=== PATIENT | female | born 1985 | race Caucasian/White ===

== ENCOUNTER 2023-05-12 23:19 | Inpatient (IN) ==
[2023-05-12] MEDS ORDERED: SODIUM CHLORIDE 0.9% 500 ML IV STA (23:49)
[2023-05-13 00:18] LABS: Appearance Urine Cloudy (Clear); Bacteria Urine Automated 1+ (Negative); Bilirubin Urine Negative (Negative); Blood Urine Negative (Negative); Color Urine Yellow; Epithelial Cell Urine Auto >30 /lpf (0-5); Glucose Urine UA Negative (Negative); Ketones Urine Trace (Negative); Leukocyte Esterase Urine 1+ (Negative); Nitrite Urine Negative (Negative); Pregnancy Test, Urine Negative (Negative); Protein Urine Negative (Negative); RBC Urine Automated 0-4 /hpf (0-4); Specific Gravity Urine 1.007 (1.000-1.030); Urobilinogen Urine Negative (Negative); WBC Urine Automated >30 /hpf (0-5); pH Urine 6.5 (4.5-7.5)
[2023-05-13 00:23] LABS: Basophils # (auto) 0.04 K/uL (0-0.2); Basophils % (auto) 0.3 %; Eosinophils # (auto) 0.07 K/uL (0-0.50); Eosinophils % (auto) 0.5 %; Hematocrit (blood only) 39.3 % (37.0-47.0); Hemoglobin 13.7 g/dl (12.0-16.0); Immature Granulocytes # (auto) 0.06 K/uL (0.01-0.20); Immature Granulocytes % (auto) 0.4 %; Lymphocytes # (auto) 2.62 K/uL (1.2-3.4); Lymphocytes % (auto) 18.7 %; Mean Corpuscular Hemoglobin 29.5 pg (25.0-34.0); Mean Corpuscular Hgb Conc 34.9 g/dL (32.0-36.0); Mean Corpuscular Volume 84.7 fL (80.0-100.0); Mean Platelet Volume 10.3 fL (9.4-12.4); Monocytes # (auto) 1.19 K/uL (0.11-0.59); Monocytes % (auto) 8.5 %; Neutrophils # (auto) 10.02 K/uL (1.40-6.50); Neutrophils % (auto) 71.6 %; Platelet Count 235 K/uL (130-400); RDW Coefficient of Variation 12.2 % (11.5-14.5); RDW Standard Deviation 37.4 fL (36.4-46.3); Red Blood Count 4.64 M/uL (4.20-5.40)
[2023-05-13] MEDS ORDERED: ONDANSETRON INJ 2 MG/ML 2 ML VIAL IV STA (00:23)
[2023-05-13] MEDS ORDERED: SODIUM CHLORIDE 0.9% 1000ML 1,000 ML IV ONE (00:23)
[2023-05-13 00:34] LABS: Albumin Globulin Ratio 1.6 (0.9-2); Albumin Level 4.3 gm/dl (3.4-5.0); BUN Creatinine Ratio 17.2 (10-20); Bilirubin,Total 0.7 mg/dl (0.2-1.0); Calcium 9.7 mg/dl (8.6-10.3); Creatinine Clr Calc Pharmacy 99.5 ml/min; Est GFR (African American) 97.9 ml/min; Est GFR (Non-African American) 84.5 ml/min; Globulin 2.7 gm/dl (2.5-4.0); Potassium 3.8 mmol/L (3.5-5.1)
--- NOTE | 2023-05-13 00:35 | Emergency Department Note ---
History of Present Illness General Chief complaint: Flank Pain Stated complaint: SEVERE BACK PAIN,RT FLANK PAIN,FEVER Time Seen by Provider: 05/13/23 00:13 Source: patient, RN notes reviewed and old records reviewed (I have reviewed I have reviewed the CAT scan and labs from [facility]) Mode of arrival: ambulatory Limitations: no limitations History of Present Illness Maximum Pain Intensity: 8 This patient is a 37-year-old female who comes in after having pain in her right flank since Thursday she has no dysuria hematuria she had a low-grade temperature up to 100 degrees. She was seen at [facility] yesterday had a CAT scan which showed mild hydro but no stone her white count was elevated 14 she follow-up with her doctor today without was related to her back she says it is constant pain but it does hurt worse when she moves her leg or moves at all. She has a history of UTIs but had no urinary symptoms. She has had no cough or shortness of breath or pleurisy no trauma or injury. The pain does also radiate around into her abdomen. No history of kidney stones or back problems Home Medications Medication Instructions Recorded Confirmed Type No Known Home Medications 05/13/23 05/13/23 History Allergies Allergy/AdvReac Type Severity Reaction Status Date / Time codeine Allergy Hives Verified 05/12/23 23:49 Past Med/Surg History Social History Smoking Status: Never smoker Preferred Language: Uzbek Feels Safe at Home: Yes Immunizations: Past medical historyno history of kidney stones or back infections no abdominal surgery Social history. she recently moved back to the area. her is in the [facility] and will be driving her home Review of Systems A total of 10 systems reviewed and were otherwise negative Physical Exam Vital Signs Vital Signs - 24 hr 05/12/23 23:20 05/12/23 23:46 05/12/23 23:50 Temperature 36.8 C Temperature Source Temporal Artery Scan Pulse Rate 131 H 118 H Pulse Rate [Apical] Pulse Rate [Finger] 127 H Pulse Rate from SpO2 Sensor Pulse Rhythm [Finger] Regular Pulse Strength [Finger] Normal Respiratory Rate 16 25 H Respiratory Effort / Characteristics Non-Labored Spontaneous Non-Labored Spontaneous Respiratory Depth Normal Normal Respiratory Pattern Regular Blood Pressure 152/99 H Blood Pressure [Left Arm] 154/97 H Blood Pressure Mean 116 Blood Pressure Mean [Left Arm] 116 Pulse Oximetry 97 95 Oxygen Delivery Method Room Air Room Air Sepsis Recent Fever Within 48 Hours No Sepsis New/Unexplained Change in Mental Status No Sepsis Action Taken by Nursing No Action Required 05/12/23 23:46 05/12/23 23:46 05/13/23 00:00 Temperature Temperature Source Pulse Rate 125 H Pulse Rate [Apical] Pulse Rate [Finger] Pulse Rate from SpO2 Sensor 124 H Pulse Rhythm [Finger] Pulse Strength [Finger] Respiratory Rate 23 Respiratory Effort / Characteristics Respiratory Depth Respiratory Pattern Blood Pressure 154/97 H 135/95 Blood Pressure [Left Arm] Blood Pressure Mean 116 108 Blood Pressure Mean [Left Arm] Pulse Oximetry 96 Oxygen Delivery Method Sepsis Recent Fever Within 48 Hours Sepsis New/Unexplained Change in Mental Status Sepsis Action Taken by Nursing 05/13/23 00:00 05/13/23 00:44 05/13/23 01:00 Temperature Temperature Source Pulse Rate 120 H 114 H Pulse Rate [Apical] Pulse Rate [Finger] Pulse Rate from SpO2 Sensor 121 H Pulse Rhythm [Finger] Pulse Strength [Finger] Respiratory Rate 26 H Respiratory Effort / Characteristics Respiratory Depth Respiratory Pattern Blood Pressure 125/85 Blood Pressure [Left Arm] Blood Pressure Mean 98 Blood Pressure Mean [Left Arm] Pulse Oximetry 96 Oxygen Delivery Method Sepsis Recent Fever Within 48 Hours Sepsis New/Unexplained Change in Mental Status Sepsis Action Taken by Nursing 05/13/23 01:00 05/13/23 01:30 05/13/23 01:30 Temperature Temperature Source Pulse Rate 109 H 110 H Pulse Rate [Apical] Pulse Rate [Finger] Pulse Rate from SpO2 Sensor 109 H Pulse Rhythm [Finger] Pulse Strength [Finger] Respiratory Rate 17 19 Respiratory Effort / Characteristics Respiratory Depth Respiratory Pattern Blood Pressure 120/89 Blood Pressure [Left Arm] Blood Pressure Mean 99 Blood Pressure Mean [Left Arm] Pulse Oximetry 99 Oxygen Delivery Method Sepsis Recent Fever Within 48 Hours Sepsis New/Unexplained Change in Mental Status Sepsis Action Taken by Nursing 05/13/23 03:03 Temperature Temperature Source Pulse Rate Pulse Rate [Apical] 104 H Pulse Rate [Finger] Pulse Rate from SpO2 Sensor Pulse Rhythm [Finger] Pulse Strength [Finger] Respiratory Rate 20 Respiratory Effort / Characteristics Respiratory Depth Respiratory Pattern Blood Pressure Blood Pressure [Left Arm] 129/84 Blood Pressure Mean Blood Pressure Mean [Left Arm] 99 Pulse Oximetry 96 Oxygen Delivery Method Room Air Sepsis Recent Fever Within 48 Hours Sepsis New/Unexplained Change in Mental Status Sepsis Action Taken by Nursing General: Well developed well nourished not ill-appearing young female who appears in no acute distress, breathing comfortably on room air. Normal speech HEENT: Normal cephalic atraumatic. Pupils are equal round and reactive to light. Extraocular movements are intact. Oropharynx is pink with moist mucous membranes. No swelling of the mouth lips or tongue. Neck: Supple with a midline trachea. No meningeal signs or stiffness, no JVD or bruits. No Stridor. Chest: Clear to auscultation bilaterally. No wheezes or rhonchi. No increased work of breathing. Heart: Regular rate and rhythm without murmurs or gallops. Abdomen: Soft nontender, nondistended without rebound guarding or rigidity. Extremities: No cyanosis clubbing or edema. No calf tenderness or assymetry Spine/Back. Non tender to palpation. Just mildly tender in the right flank. No redness or warmth or rash Skin: Good turgor without rashes. Neurologic exam: Cranial nerves two through 12 are intact. Motor and sensation are intact and symmetrical throughout. 2+ to 3+ Achilles and patellar reflexes bilateral Course Administered Medications Discontinued Medications Gadobutrol (Gadobutrol 65ml Vial) 9.5 ml IV ONCE ONE Stop: 05/13/23 02:34 Last Admin: 05/13/23 02:33 Dose: 9.5 ml Documented By: ALEX Sodium Chloride (Nss) 500 mls @ 999 mls/hr IV .Q31M STA Stop: 05/13/23 00:19 Last Infusion: 05/13/23 01:57 Dose: 0 mls/hr Documented By: Admin: 05/13/23 00:00 Dose: 999 mls/hr Documented By: JED Sodium Chloride (Nss 1000ml) 1,000 mls @ 999 mls/hr IV .Q1H1M ONE Stop: 05/13/23 01:23 Last Infusion: 05/13/23 01:57 Dose: 0 mls/hr Documented By: Admin: 05/13/23 00:50 Dose: 999 mls/hr Documented By: JED Ceftriaxone Sodium (Rocephin) 2,000 mg in 70 mls @ 140 mls/hr IV NOW STA Stop: 05/13/23 02:00 Last Infusion: 05/13/23 03:06 Dose: 0 mls/hr Documented By: Admin: 05/13/23 01:57 Dose: 140 mls/hr Documented By: JED Ondansetron HCl (Ondansetron Inj 2 Mg/Ml 2 Ml Vial) 4 mg IV NOW STA Stop: 05/13/23 00:24 Last Admin: 05/13/23 01:12 Dose: Not Given Documented By: JED Medical Decision Making Differential Diagnosis Kidney stone, kidney infection, intra-abdominal process, electrolyte or metabolic abnormality, spinal disease or process, spinal infection, UTI, kidney stone, Medical Records Attestation: I reviewed the patient's medical records. Home Medications Current Medication List: was personally reviewed by me Laboratory Data Attestation: I reviewed the patient's lab results. 05/13/23 00:01 05/13/23 00:01 Lab Results 05/13/23 05/13/23 05/13/23 Range/Units 00:01 00:01 00:01 WBC 14.00 H (4.8-10.8) K/ul RBC 4.64 (4.20-5.40) M/uL Hgb 13.7 (12.0-16.0) g/dl Hct 39.3 (37.0-47.0) % MCV 84.7 (80.0-100.0) fL MCH 29.5 (25.0-34.0) pg MCHC 34.9 (32.0-36.0) g/dL RDW Std Deviation 37.4 (36.4-46.3) fL RDW Coeff of Nelson 12.2 (11.5-14.5) % Plt Count 235 (130-400) K/uL MPV 10.3 (9.4-12.4) fL Immature Gran % (Auto) 0.4 % Neut % (Auto) 71.6 % Lymph % (Auto) 18.7 % [place] % (Auto) 8.5 % Eos % (Auto) 0.5 % Baso % (Auto) 0.3 % Neut # (Auto) 10.02 H (1.40-6.50) K/uL Lymph # (Auto) 2.62 (1.2-3.4) K/uL [place] # (Auto) 1.19 H (0.11-0.59) K/uL Eos # (Auto) 0.07 (0-0.50) K/uL Baso # (Auto) 0.04 (0-0.2) K/uL Immature Gran # (Auto) 0.06 (0.01-0.20) K/uL Sodium 137 (136-145) mmol/L Potassium 3.8 (3.5-5.1) mmol/L Chloride 104 (98-107) mmol/L Carbon Dioxide 24 (21-32) mmol/L Anion Gap 9 (3-11) BUN 15 (6-23) mg/dl Creatinine 0.87 (0.6-1.2) mg/dl Est Cr Clr Drug Dosing 99.5 ml/min Est GFR ( Amer) 97.9 ml/min Est GFR (Non-Af Amer) 84.5 ml/min BUN/Creatinine Ratio 17.2 (10-20) Glucose 110 H (70-99(Fasting)) mg/dl Lactate (0.4-2.0) mmol/L Calcium 9.7 (8.6-10.3) mg/dl Total Bilirubin 0.7 (0.2-1.0) mg/dl AST 10 L (13-39) U/L ALT 11 (7-52) U/L Alkaline Phosphatase 36 (34-104) U/L Total Protein 7.0 (6.0-8.3) gm/dl Albumin 4.3 (3.4-5.0) gm/dl Globulin 2.7 (2.5-4.0) gm/dl Albumin/Globulin Ratio 1.6 (0.9-2) Lipase 20 (11-82) U/L Urine Color Yellow Urine Appearance Cloudy A (Clear) Urine pH 6.5 (4.5-7.5) Ur Specific Franklin 1.007 (1.000-1.030) Urine Protein Negative (Negative) Urine Glucose (UA) Negative (Negative) Urine Ketones Trace H (Negative) Urine Blood Negative (Negative) Urine Nitrite Negative (Negative) Urine Bilirubin Negative (Negative) Urine Urobilinogen Negative (Negative) Ur Leukocyte Esterase 1+ H (Negative) Urine WBC (Auto) >30 H (0-5) /hpf Urine RBC (Auto) 0-4 (0-4) /hpf U Hyaline Cast (Auto) 1-5 (0-5) /lpf U Epithel Cells (Auto) >30 H (0-5) /lpf Urine Bacteria (Auto) 1+ H (Negative) Urine Test (Negative) 05/13/23 05/13/23 Range/Units 00:01 00:54 WBC (4.8-10.8) K/ul RBC (4.20-5.40) M/uL Hgb (12.0-16.0) g/dl Hct (37.0-47.0) % MCV (80.0-100.0) fL MCH (25.0-34.0) pg MCHC (32.0-36.0) g/dL RDW Std Deviation (36.4-46.3) fL RDW Coeff of Nelson (11.5-14.5) % Plt Count (130-400) K/uL MPV (9.4-12.4) fL Immature Gran % (Auto) % Neut % (Auto) % Lymph % (Auto) % [place] % (Auto) % Eos % (Auto) % Baso % (Auto) % Neut # (Auto) (1.40-6.50) K/uL Lymph # (Auto) (1.2-3.4) K/uL [place] # (Auto) (0.11-0.59) K/uL Eos # (Auto) (0-0.50) K/uL Baso # (Auto) (0-0.2) K/uL Immature Gran # (Auto) (0.01-0.20) K/uL Sodium (136-145) mmol/L Potassium (3.5-5.1) mmol/L Chloride (98-107) mmol/L Carbon Dioxide (21-32) mmol/L Anion Gap (3-11) BUN (6-23) mg/dl Creatinine (0.6-1.2) mg/dl Est Cr Clr Drug Dosing ml/min Est GFR ( Amer) ml/min Est GFR (Non-Af Amer) ml/min BUN/Creatinine Ratio (10-20) Glucose (70-99(Fasting)) mg/dl Lactate 0.6 (0.4-2.0) mmol/L Calcium (8.6-10.3) mg/dl Total Bilirubin (0.2-1.0) mg/dl AST (13-39) U/L ALT (7-52) U/L Alkaline Phosphatase (34-104) U/L Total Protein (6.0-8.3) gm/dl Albumin (3.4-5.0) gm/dl Globulin (2.5-4.0) gm/dl Albumin/Globulin Ratio (0.9-2) Lipase (11-82) U/L Urine Color Urine Appearance (Clear) Urine pH (4.5-7.5) Ur Specific Franklin (1.000-1.030) Urine Protein (Negative) Urine Glucose (UA) (Negative) Urine Ketones (Negative) Urine Blood (Negative) Urine Nitrite (Negative) Urine Bilirubin (Negative) Urine Urobilinogen (Negative) Ur Leukocyte Esterase (Negative) Urine WBC (Auto) (0-5) /hpf Urine RBC (Auto) (0-4) /hpf U Hyaline Cast (Auto) (0-5) /lpf U Epithel Cells (Auto) (0-5) /lpf Urine Bacteria (Auto) (Negative) Urine Test Negative (Negative) Imaging Data Attestation: I personally reviewed and interpreted this imaging study as follows: My Impression: CT stone study-no obstructive uropathy or any acute intra-abdominal process seen Radiologist's Impression: Abdomen/Pelvis CT 05/13/23 00:26 Exam(s): CT ABDOMEN + PELVIS Without Contrast EXAM: CT Abdomen and Pelvis Without Intravenous Contrast CLINICAL HISTORY: Reason for exam: right flank pain. TECHNIQUE: Axial computed tomography images of the abdomen and pelvis without intravenous contrast. CTDI is 28.08 mGy and DLP is 1426.95 mGy-cm. Automated exposure control was utilized for the study. A dose lowering technique was utilized adhering to the principles of ALARA. COMPARISON: No relevant prior studies available. FINDINGS: Lung bases: Unremarkable. No mass. No consolidation. ABDOMEN: Liver: The liver is borderline enlarged is 18 cm. No focal liver lesion is seen. Gallbladder and bile ducts: Unremarkable. No calcified stones. No ductal dilation. Pancreas: Unremarkable. No ductal dilation. Spleen: Unremarkable. No splenomegaly. Adrenals: Unremarkable. No mass. Kidneys and ureters: The kidneys are unremarkable. No hydronephrosis or ureterolithiasis is seen. Stomach and bowel: Unremarkable. No obstruction. No mucosal thickening. PELVIS: Appendix: The appendix is normal. Bowel loops are nondilated. No acute inflammatory changes are seen involving the bowel. Bladder: Unremarkable. No stones. Reproductive: Unremarkable as visualized. ABDOMEN and PELVIS: Intraperitoneal space: Unremarkable. No free air. No significant fluid collection. Bones/joints: No acute fracture. No dislocation. Soft tissues: Unremarkable. Vasculature: Unremarkable. No abdominal aortic aneurysm. Lymph nodes: Unremarkable. No enlarged lymph nodes. IMPRESSION: 1. The kidneys are unremarkable. No hydronephrosis or ureterolithiasis is seen. 2. The appendix is normal. Bowel loops are nondilated. No acute inflammatory changes are seen involving the bowel. Electronically signed by: Alex Thakkar MD 05/13/23 01:20 AM Lumbar Spine MRI 05/13/23 01:28 CR Exam(s): MRI L SPINE W/WO Contrast IV Amt: 9.5cc gadavist EXAM: MR Lumbar Spine Without and With Intravenous Contrast CLINICAL HISTORY: Reason for exam: back pain, fever, elevated wbc, eval for infection. TECHNIQUE: Magnetic resonance images of the lumbar spine without and with intravenous contrast in multiple planes. CONTRAST: Patient received 9.5cc gadavist of IV contrast COMPARISON: CT Abd/Pel 05-13-2023 FINDINGS: Vertebrae: There are 5 lumbar type vertebral bodies with shallow lumbar lordosis. There is normal vertebral body height and alignment. The bone marrow signal is normal. No acute fracture. There is mild wedging of the T12 vertebral body, which is likely physiologic. Spinal cord: The conus is normal size, shape and signal characteristics, terminating at T11-12. No abnormal enhancement. Soft tissues: Increased fluid signal in the L2-3, L3-4 and L4-5 interspinous bursa with increased enhancement in the L2-3 interspinous bursa with small rim-enhancing fluid collection adjacent to the right spinous process concerning for abscess, measuring 15.9 x 7.3 mm. DISCS/SPINAL CANAL/NEURAL FORAMINA: L1-L2: Unremarkable. No significant disc disease. No stenosis. L2-L3: Unremarkable. No significant disc disease. No stenosis. L3-L4: Unremarkable. No significant disc disease. No stenosis. L4-L5: Unremarkable. No significant disc disease. No stenosis. L5-S1: Unremarkable. No significant disc disease. No stenosis. IMPRESSION: Findings concerning for infectious interspinous bursitis at L2-3 with small abscess adjacent to the L2 and L3 spinous processes, measuring 15.9 x 7.3 mm. No evidence of osteomyelitis or epidural abscess. Communications: Verify Receipt Electronically signed by: Cheryl Lujan MD 05/13/23 04:57 AM MDM Narrative This patient comes in as described above. She was placed in room A3. She is here for treatment evaluation of back pain. She is also has pain rating down her leg feels numbness and tingling at times. She looks well she is a little bit tachycardic . IV access was established was given 1 L IV normal saline bolus. She had blood work done her white count is elevated 14 her urinalysis is difficult to say because there is greater than 30 epithelial cells. I did review her labs from [facility] and she did have an elevated white count there. Her CAT scan showed mild hydro without any other findings I repeated the CAT scan here there is no obstructive uropathy or anything to suggest her symptoms her urinalysis is suboptimal as she is greater than 30 epithelial cells so it is difficult to rule out a UTI in or out. She is no significant electrolyte or metabolic abnormalities. I did give her Rocephin 2 g IV for possible infection of concern her white count still elevated at 14. She has low-grade temperature , I did do an MRI of her back to rule out any infectious process such as discitis or epidural abscess it seems like she is low risk for these but given her symptoms and no other definite explanation, I feel it is warranted. Her MRI did come back abnormal with findings concerning for an infectious intraspinous bursitis at L2-3 with a small abscess adjacent to the L2 and L3 spinous process measuring 15.9 x 7.3 mm. No evidence of osteomyelitis or epidural abscess. I did discuss this at length with Dr. Landeros, who is on-call for spine. He does recommend the patient be admitted to medicine for IV antibiotics and he will look at the films and look at the patient and determine if there is any procedure needed he said it may be that she needs to go to the OR for washout but he will determine that after evaluating the MRI and the patient. In the meantime, I did call and talk to Dr. Rodgers who is on-call for medical unassigned and he is going to see the patient in the ER for admiss ion/observation Continuous clinical research monitor: Orders placed in EMR for continuous cart monitoring: Upon my evaluation patient was noted to be in sinus tachycardia with a rate of 110 Impression & Plan Flank Pain, Bursitis, Abscess, Not currently Discharge Plan Visit Data Chief Complaint: Flank Pain Stated Complaint: SEVERE BACK PAIN,RT FLANK PAIN,FEVER ED Provider: Elmer Perrin Discharge Problem: Flank Pain, Bursitis, Abscess, Not currently Discharge Instructions Activity Restrictions/Additional Instructions: Rest. Drink plenty of fluids. Return if: Increasing pain, numbness or weakness, worsening symptoms, any new problems or concerns Use Augmentin 875 mg twice a day for 10 days-antibiotic May use [id number] ibuprofen 400 mg every 6 hours as needed for pain or fever May also use [id number] Tylenol/acetaminophen maximum of 650 mg every 6 hours if needed for pain or fever. Do not take with any other medications that contain Tylenol/acetaminophen Forms Stand Alone Forms: My [facility] [employer] Prescriptions Prescriptions: No Action No Known Home Medications Referrals Referrals: PCP,NO [Physician] -
--- NOTE | 2023-05-13 01:21 | CT Scan Report ---
Exam(s): CT ABDOMEN + PELVIS Without Contrast EXAM: CT Abdomen and Pelvis Without Intravenous Contrast CLINICAL HISTORY: Reason for exam: right flank pain. TECHNIQUE: Axial computed tomography images of the abdomen and pelvis without intravenous contrast. CTDI is 28.08 mGy and DLP is 1426.95 mGy-cm. Automated exposure control was utilized for the study. A dose lowering technique was utilized adhering to the principles of ALARA. COMPARISON: No relevant prior studies available. FINDINGS: Lung bases: Unremarkable. No mass. No consolidation. ABDOMEN: Liver: The liver is borderline enlarged is 18 cm. No focal liver lesion is seen. Gallbladder and bile ducts: Unremarkable. No calcified stones. No ductal dilation. Pancreas: Unremarkable. No ductal dilation. Spleen: Unremarkable. No splenomegaly. Adrenals: Unremarkable. No mass. Kidneys and ureters: The kidneys are unremarkable. No hydronephrosis or ureterolithiasis is seen. Stomach and bowel: Unremarkable. No obstruction. No mucosal thickening. PELVIS: Appendix: The appendix is normal. Bowel loops are nondilated. No acute inflammatory changes are seen involving the bowel. Bladder: Unremarkable. No stones. Reproductive: Unremarkable as visualized. ABDOMEN and PELVIS: Intraperitoneal space: Unremarkable. No free air. No significant fluid collection. Bones/joints: No acute fracture. No dislocation. Soft tissues: Unremarkable. Vasculature: Unremarkable. No abdominal aortic aneurysm. Lymph nodes: Unremarkable. No enlarged lymph nodes. IMPRESSION: 1. The kidneys are unremarkable. No hydronephrosis or ureterolithiasis is seen. 2. The appendix is normal. Bowel loops are nondilated. No acute inflammatory changes are seen involving the bowel. Electronically signed by: Alex Thakkar MD 05/13/23 01:20 AM
[2023-05-13] MEDS ORDERED: cefTRIAXone SODIUM 2,000 MG/70 ML BAG IV STA (01:31)
[2023-05-13] MEDS ORDERED: GADOBUTROL 65ML VIAL IV ONE (02:33)
--- NOTE | 2023-05-13 04:58 | Magnetic Resonance Report ---
Exam(s): MRI L SPINE W/WO Contrast IV Amt: 9.5cc gadavist EXAM: MR Lumbar Spine Without and With Intravenous Contrast CLINICAL HISTORY: Reason for exam: back pain, fever, elevated wbc, eval for infection. TECHNIQUE: Magnetic resonance images of the lumbar spine without and with intravenous contrast in multiple planes. CONTRAST: Patient received 9.5cc gadavist of IV contrast COMPARISON: CT Abd/Pel 05-13-2023 FINDINGS: Vertebrae: There are 5 lumbar type vertebral bodies with shallow lumbar lordosis. There is normal vertebral body height and alignment. The bone marrow signal is normal. No acute fracture. There is mild wedging of the T12 vertebral body, which is likely physiologic. Spinal cord: The conus is normal size, shape and signal characteristics, terminating at T11-12. No abnormal enhancement. Soft tissues: Increased fluid signal in the L2-3, L3-4 and L4-5 interspinous bursa with increased enhancement in the L2-3 interspinous bursa with small rim-enhancing fluid collection adjacent to the right spinous process concerning for abscess, measuring 15.9 x 7.3 mm. DISCS/SPINAL CANAL/NEURAL FORAMINA: L1-L2: Unremarkable. No significant disc disease. No stenosis. L2-L3: Unremarkable. No significant disc disease. No stenosis. L3-L4: Unremarkable. No significant disc disease. No stenosis. L4-L5: Unremarkable. No significant disc disease. No stenosis. L5-S1: Unremarkable. No significant disc disease. No stenosis. IMPRESSION: Findings concerning for infectious interspinous bursitis at L2-3 with small abscess adjacent to the L2 and L3 spinous processes, measuring 15.9 x 7.3 mm. No evidence of osteomyelitis or epidural abscess. Communications: Verify Receipt Electronically signed by: Cheryl Lujan MD 05/13/23 04:57 AM
[2023-05-13] MEDS ORDERED: SODIUM CHLORIDE 0.9% 500 ML IV SCH (05:30)
[2023-05-13] MEDS ORDERED: KETOROLAC 30 MG/ML VIAL IV ONE (05:57)
--- NOTE | 2023-05-13 06:07 | History & Physical Report ---
Date of Service May 13, 2023 Assessment & Plan (1) Bursitis: Plan: 37-year-old female presents with ongoing back pain since last Thursday and MRI scan showsinfectious interspinous bursitis at L2-3 with small abscess adjacent to the L2 and L3 spinous processes, measuring 15.9x 7.3 mm. No evidence of osteomyelitis or epidural abscess. UA was positive. Severe back pain Infectious interspinous bursitis at L2-L3 with small abscess No epidural abscess on MRI Rocephin was given in the ER ER talked to spine surgery and was advised to admit and they will see the patient in the morning Will empirically place on IV Zosyn and IV Dapto N.p.o. until seen by Ortho Pain control UTI Antibiotics as above Will follow cultures DVT prophylaxis SCDs for now Disposition med/telemetry for now Full code History of Present Illness Chief Complaint: Back pain, infectious interspinous bursitis and UTI Primary Care Provider: Shay Andrade 37-year-old female no significant past medical history comes here because of severe back pain that started last Thursday. Thursday she could not able to ambulate much because the pain. Went to [place] ER CT scan was done which showed some right hydronephrosis but nothing significant. But his pain was not getting better came to the ER here. Had temperature 101.1. Able to ambulate okay but a lot of pain on movement in the back. Pain is shooting into the right leg up to the knee. The pain is radiating to the umbilical region. No headache. No neck pain. No chest pain. No blurred visions earache or runny nose or sore throat. No cough. No shortness of breath. Currently no nausea. Constipated last 2 days. Micturating okay. Currently resting comfortably and hemodynamically stable. Patient states she was having knee pains and some vision issues which resolved now and she was tested for rheumatological disease and ALDO was positive. Patient states it was not determined why her ALDO was positive Past medical history none Past surgical history Family history significant for hypertension, high cholesterol and diabetes Social history denies smoking or alcohol use. Denies drug use Allergies Allergy/AdvReac Type Severity Reaction Status Date / Time codeine Allergy Hives Verified 05/12/23 23:49 Home Medications Medication Instructions Recorded Confirmed Type No Known Home Medications 05/13/23 05/13/23 History Past Med/Surg History Social History Smoking Status: Never smoker Preferred Language: Greenlandic Feels Safe at Home: Yes Review of Systems Review of Systems: All systems reviewed & are unremarkable except as noted in Subjective Physical Exam Physical Exam: General- Not in distress Head- atraumatic Eyes- PERRL, ENT- oropharynx clear Neck- supple, no JVD, Lungs- clear to auscultation bilaterally, no wheezing or crackles. Heart- regular rate and rhythm; no murmur, no gallop. Abdomen- normal bowel sounds, soft, nontender, no distension. Extremities- no pretibial edema, no erythema seen. Neuro- alert, oriented x 3; PERRL, EOMI; no facial palsy; no dysarthria; moves extremities Musculoskeletal Right leg straight leg test positive. Skin- warm & dry Results & Data Results & Data Vital Signs (Past 12 Hours) Vital Signs Temp Pulse Pulse Pulse Resp BP BP 05/13/23 05:26 114 H 05/13/23 03:03 104 H 20 129/84 05/13/23 01:30 110 H 19 05/13/23 01:30 120/89 05/13/23 01:00 109 H 17 05/13/23 01:00 125/85 05/13/23 00:44 114 H 05/13/23 00:00 120 H 26 H 05/13/23 00:00 135/95 05/12/23 23:46 125 H 23 05/12/23 23:46 154/97 H 05/12/23 23:50 118 H 05/12/23 23:46 127 H 25 H 154/97 H 05/12/23 23:20 36.8 C 131 H 16 152/99 H Pulse Ox O2 Del Method 05/13/23 05:26 05/13/23 03:03 96 Room Air 05/13/23 01:30 99 05/13/23 01:30 05/13/23 01:00 05/13/23 01:00 05/13/23 00:44 05/13/23 00:00 96 05/13/23 00:00 05/12/23 23:46 96 05/12/23 23:46 05/12/23 23:50 05/12/23 23:46 95 Room Air 05/12/23 23:20 97 Room Air Diagnostic Findings Laboratory Results WBC 14.00 K/ul (4.8-10.8) H 05/13/23 00:01 RBC 4.64 M/uL (4.20-5.40) 05/13/23 00:01 Hgb 13.7 g/dl (12.0-16.0) 05/13/23 00:01 Hct 39.3 % (37.0-47.0) 05/13/23 00:01 MCV 84.7 fL (80.0-100.0) 05/13/23 00:01 MCH 29.5 pg (25.0-34.0) 05/13/23 00:01 MCHC 34.9 g/dL (32.0-36.0) 05/13/23 00:01 RDW Std Deviation 37.4 fL (36.4-46.3) 05/13/23 00:01 RDW Coeff of Nelson 12.2 % (11.5-14.5) 05/13/23 00:01 Plt Count 235 K/uL (130-400) 05/13/23 00:01 MPV 10.3 fL (9.4-12.4) 05/13/23 00:01 Immature Gran % (Auto) 0.4 % 05/13/23 00:01 Neut % (Auto) 71.6 % 05/13/23 00:01 Lymph % (Auto) 18.7 % 05/13/23 00:01 Lea % (Auto) 8.5 % 05/13/23 00:01 Eos % (Auto) 0.5 % 05/13/23 00:01 Baso % (Auto) 0.3 % 05/13/23 00:01 Neut # (Auto) 10.02 K/uL (1.40-6.50) H 05/13/23 00:01 Lymph # (Auto) 2.62 K/uL (1.2-3.4) 05/13/23 00:01 Lea # (Auto) 1.19 K/uL (0.11-0.59) H 05/13/23 00:01 Eos # (Auto) 0.07 K/uL (0-0.50) 05/13/23 00:01 Baso # (Auto) 0.04 K/uL (0-0.2) 05/13/23 00:01 Immature Gran # (Auto) 0.06 K/uL (0.01-0.20) 05/13/23 00:01 Sodium 137 mmol/L (136-145) 05/13/23 00:01 Potassium 3.8 mmol/L (3.5-5.1) 05/13/23 00:01 Chloride 104 mmol/L (98-107) 05/13/23 00:01 Carbon Dioxide 24 mmol/L (21-32) 05/13/23 00:01 Anion Gap 9 (3-11) 05/13/23 00:01 BUN 15 mg/dl (6-23) 05/13/23 00:01 Creatinine 0.87 mg/dl (0.6-1.2) 05/13/23 00:01 Est Cr Clr Drug Dosing 99.5 ml/min 05/13/23 00:01 Est GFR ( Amer) 97.9 ml/min 05/13/23 00:01 Est GFR (Non-Af Amer) 84.5 ml/min 05/13/23 00:01 BUN/Creatinine Ratio 17.2 (10-20) 05/13/23 00:01 Glucose 110 mg/dl (70-99(Fasting)) H 05/13/23 00:01 Lactate 0.6 mmol/L (0.4-2.0) 05/13/23 00:54 Calcium 9.7 mg/dl (8.6-10.3) 05/13/23 00:01 Total Bilirubin 0.7 mg/dl (0.2-1.0) 05/13/23 00:01 AST 10 U/L (13-39) L 05/13/23 00:01 ALT 11 U/L (7-52) 05/13/23 00:01 Alkaline Phosphatase 36 U/L (34-104) 05/13/23 00:01 Total Protein 7.0 gm/dl (6.0-8.3) 05/13/23 00:01 Albumin 4.3 gm/dl (3.4-5.0) 05/13/23 00:01 Globulin 2.7 gm/dl (2.5-4.0) 05/13/23 00:01 Albumin/Globulin Ratio 1.6 (0.9-2) 05/13/23 00:01 Lipase 20 U/L (11-82) 05/13/23 00:01 Urine Color Yellow 05/13/23 00: Urine Appearance Cloudy (Clear) A 05/13/23 00:01 Urine pH 6.5 (4.5-7.5) 05/13/23 00:01 Ur Specific [place] 1.007 (1.000-1.030) 05/13/23 00:01 Urine Protein Negative (Negative) 05/13/23 00:01 Urine Glucose (UA) Negative (Negative) 05/13/23 00:01 Urine Ketones Trace (Negative) H 05/13/23 00:01 Urine Blood Negative (Negative) 05/13/23 00: Urine Nitrite Negative (Negative) 05/13/23 00:01 Urine Bilirubin Negative (Negative) 05/13/23 00:01 Urine Urobilinogen Negative (Negative) 05/13/23 00:01 Ur Leukocyte Esterase 1+ (Negative) H 05/13/23 00:01 Urine WBC (Auto) >30 /hpf (0-5) H 05/13/23 00:01 Urine RBC (Auto) 0-4 /hpf (0-4) 05/13/23 00: U Hyaline Cast (Auto) 1-5 /lpf (0-5) 05/13/23 00:01 U Epithel Cells (Auto) >30 /lpf (0-5) H 05/13/23 00:01 Urine Bacteria (Auto) 1+ (Negative) H 05/13/23 00:01 Urine Test Negative (Negative) 05/13/23 00:01 Impressions Abdomen/Pelvis CT 05/13/23 00:26 Exam(s): CT ABDOMEN + PELVIS Without Contrast EXAM: CT Abdomen and Pelvis Without Intravenous Contrast CLINICAL HISTORY: Reason for exam: right flank pain. TECHNIQUE: Axial computed tomography images of the abdomen and pelvis without intravenous contrast. CTDI is 28.08 mGy and DLP is 1426.95 mGy-cm. Automated exposure control was utilized for the study. A dose lowering technique was utilized adhering to the principles of ALARA. COMPARISON: No relevant prior studies available. FINDINGS: Lung bases: Unremarkable. No mass. No consolidation. ABDOMEN: Liver: The liver is borderline enlarged is 18 cm. No focal liver lesion is seen. Gallbladder and bile ducts: Unremarkable. No calcified stones. No ductal dilation. Pancreas: Unremarkable. No ductal dilation. Spleen: Unremarkable. No splenomegaly. Adrenals: Unremarkable. No mass. Kidneys and ureters: The kidneys are unremarkable. No hydronephrosis or ureterolithiasis is seen. Stomach and bowel: Unremarkable. No obstruction. No mucosal thickening. PELVIS: Appendix: The appendix is normal. Bowel loops are nondilated. No acute inflammatory changes are seen involving the bowel. Bladder: Unremarkable. No stones. Reproductive: Unremarkable as visualized. ABDOMEN and PELVIS: Intraperitoneal space: Unremarkable. No free air. No significant fluid collection. Bones/joints: No acute fracture. No dislocation. Soft tissues: Unremarkable. Vasculature: Unremarkable. No abdominal aortic aneurysm. Lymph nodes: Unremarkable. No enlarged lymph nodes. IMPRESSION: 1. The kidneys are unremarkable. No hydronephrosis or ureterolithiasis is seen. 2. The appendix is normal. Bowel loops are nondilated. No acute inflammatory changes are seen involving the bowel. Electronically signed by: Alex Thakkar MD 05/13/23 01:20 AM Lumbar Spine MRI 05/13/23 01:28 CR Exam(s): MRI L SPINE W/WO Contrast IV Amt: 9.5cc gadavist EXAM: MR Lumbar Spine Without and With Intravenous Contrast CLINICAL HISTORY: Reason for exam: back pain, fever, elevated wbc, eval for infection. TECHNIQUE: Magnetic resonance images of the lumbar spine without and with intravenous contrast in multiple planes. CONTRAST: Patient received 9.5cc gadavist of IV contrast COMPARISON: CT Abd/Pel 05-13-2023 FINDINGS: Vertebrae: There are 5 lumbar type vertebral bodies with shallow lumbar lordosis. There is normal vertebral body height and alignment. The bone marrow signal is normal. No acute fracture. There is mild wedging of the T12 vertebral body, which is likely physiologic. Spinal cord: The conus is normal size, shape and signal characteristics, terminating at T11-12. No abnormal enhancement. Soft tissues: Increased fluid signal in the L2-3, L3-4 and L4-5 interspinous bursa with increased enhancement in the L2-3 interspinous bursa with small rim-enhancing fluid collection adjacent to the right spinous process concerning for abscess, measuring 15.9 x 7.3 mm. DISCS/SPINAL CANAL/NEURAL FORAMINA: L1-L2: Unremarkable. No significant disc disease. No stenosis. L2-L3: Unremarkable. No significant disc disease. No stenosis. L3-L4: Unremarkable. No significant disc disease. No stenosis. L4-L5: Unremarkable. No significant disc disease. No stenosis. L5-S1: Unremarkable. No significant disc disease. No stenosis. IMPRESSION: Findings concerning for infectious interspinous bursitis at L2-3 with small abscess adjacent to the L2 and L3 spinous processes, measuring 15.9 x 7.3 mm. No evidence of osteomyelitis or epidural abscess. Communications: Verify Receipt Electronically signed by: Cheryl Lujan MD 05/13/23 04:57 AM Code Status & VTE Plan VTE Prophylaxis Plan VTE Prophylaxis will be ordered: Yes (1) Bursitis Bursitis location: other site Qualified Code(s): M71.9 - Bursopathy, unspecified
[2023-05-13] MEDS ORDERED: ACETAMINOPHEN 325 MG TAB PO PRN (09:00)
[2023-05-13] MEDS ORDERED: NITROGLYCERIN SL 0.4 MG/TAB TAB SL PRN (09:00)
[2023-05-13] MEDS ORDERED: POLYETHYLENE (MIRALAX) 17 GM PACK PO PRN (09:00)
[2023-05-13] MEDS ORDERED: PIPERACILLIN/TAZOBACTAM 4.5 GM (over 30 mins) IV ONE (09:30)
--- NOTE | 2023-05-13 09:35 | Orthopedic Consultation ---
Date of Service May 13, 2023 History of Present Illness Reason for Consultation: . Spinous process bursal infection, L2 Requesting Physician: . Attending Physician: Fili Kent MD . 37-year-old female who reports having developed symptoms 4 days previously. She reports developing pain midline in the lower lumbar spine radiating to her right flank region. She had undergone evaluation in the emergency room at [place], was treated with some Toradol and additional observation but without improvement. She then reported to the emergency room here at [facility], CT scan additionally was performed along with then a lumbar MRI. Patient reports that the symptoms developed rapidly overnight, she reports no fevers or chills leading up to this except today with a temperature of 101, no infections anywhere else in the body. Otherwise she is healthy takes no medications and is a early childhood associate teacher. Patient denies any neural compressive symptoms in the lower extremities and any similar incidents. Exam reveals patient have tenderness over the spinous processes in the mid lumbar spine above the level of the iliac crest, there is no fluctuance noted or swelling. She has intact motor strength in the lower extremities negative straight leg raise bilaterally. Review of lumbar MRI images from May 13, 2023, this my separate interpretation reveals some signal change on the STIR images between L2 and L3 and what appears to be a small bursal area swelling approximately 1/2 cm by half a centimeter on the right side of the spinous process at L2. The other findings in the MRI are minimal with some very minimal disc changes, no evidence of any kind of infectious process anywhere else in the spine. EXAM: MR Lumbar Spine Without and With Intravenous Contrast CLINICAL HISTORY: Reason for exam: back pain, fever, elevated wbc, eval for infection. TECHNIQUE: Magnetic resonance images of the lumbar spine without and with intravenous contrast in multiple planes. CONTRAST: Patient received 9.5cc gadavist of IV contrast COMPARISON: CT Abd/Pel 05-13-2023 FINDINGS: Vertebrae: There are 5 lumbar type vertebral bodies with shallow lumbar lordosis. There is normal vertebral body height and alignment. The bone marrow signal is normal. No acute fracture. There is mild wedging of the T12 vertebral body, which is likely physiologic. Spinal cord: The conus is normal size, shape and signal characteristics, terminating at T11-12. No abnormal enhancement. Soft tissues: Increased fluid signal in the L2-3, L3-4 and L4-5 interspinous bursa with increased enhancement in the L2-3 interspinous bursa with small rim-enhancing fluid collection adjacent to the right spinous process concerning for abscess, measuring 15.9 x 7.3 mm. DISCS/SPINAL CANAL/NEURAL FORAMINA: L1-L2: Unremarkable. No significant disc disease. No stenosis. L2-L3: Unremarkable. No significant disc disease. No stenosis. L3-L4: Unremarkable. No significant disc disease. No stenosis. L4-L5: Unremarkable. No significant disc disease. No stenosis. L5-S1: Unremarkable. No significant disc disease. No stenosis. IMPRESSION: Findings concerning for infectious interspinous bursitis at L2-3 with small abscess adjacent to the L2 and L3 spinous processes, measuring 15.9 x 7.3 mm. No evidence of osteomyelitis or epidural abscess. EXAM: MR Lumbar Spine Without and With Intravenous Contrast CLINICAL HISTORY: Reason for exam: back pain, fever, elevated wbc, eval for infection. TECHNIQUE: Magnetic resonance images of the lumbar spine without and with intravenous contrast in multiple planes. CONTRAST: Patient received 9.5cc gadavist of IV contrast COMPARISON: CT Abd/Pel 05-13-2023 FINDINGS: Vertebrae: There are 5 lumbar type vertebral bodies with shallow lumbar lordosis. There is normal vertebral body height and alignment. The bone marrow signal is normal. No acute fracture. There is mild wedging of the T12 vertebral body, which is likely physiologic. Spinal cord: The conus is normal size, shape and signal characteristics, terminating at T11-12. No abnormal enhancement. Soft tissues: Increased fluid signal in the L2-3, L3-4 and L4-5 interspinous bursa with increased enhancement in the L2-3 interspinous bursa with small rim-enhancing fluid collection adjacent to the right spinous process concerning for abscess, measuring 15.9 x 7.3 mm. DISCS/SPINAL CANAL/NEURAL FORAMINA: L1-L2: Unremarkable. No significant disc disease. No stenosis. L2-L3: Unremarkable. No significant disc disease. No stenosis. L3-L4: Unremarkable. No significant disc disease. No stenosis. L4-L5: Unremarkable. No significant disc disease. No stenosis. L5-S1: Unremarkable. No significant disc disease. No stenosis. IMPRESSION: Findings concerning for infectious interspinous bursitis at L2-3 with small abscess adjacent to the L2 and L3 spinous processes, measuring 15.9 x 7.3 mm. No evidence of osteomyelitis or epidural abscess. WBC:14.0 Impression: Patient has 4-day history of increasing low back pain with MRI revealing her to have a potential bursal infection and changes in the STIR images on MRI along with elevated white count of 14 suggesting infectious process in this region. Plan: Today I did talk with the patient, reviewed with her the findings and the MRI. Due to the small size of the fluid collection area, I would recommend antibiotic treatment, and IR intervention with aspiration of this small area. I related that we may be able to treat this successfully with antibiotics though will have to be broad-spectrum without any known potential source. Allergies Allergy/AdvReac Type Severity Reaction Status Date / Time codeine Allergy Hives Verified 05/12/23 23:49 Home Medications Medication Instructions Recorded Confirmed Type No Known Home Medications 05/13/23 05/13/23 History Past Med/Surg History Social History Smoking Status: Never smoker Hx Alcohol Use: No Hx Substance Use: No Preferred Language: Honduran Communication Ability: Effective Hoop Expander Required: No Beliefs That Will Affect Care: None Current Living Situation: Alone Other Information That Helps Us Care for You: No Feels Safe at Home: Yes Assistive Devices: None Review of Systems All systems reviewed & are unremarkable except as noted in HPI & below. Physical Exam . Results & Data Results & Data Laboratory Results . Diagnostic Findings . PG Care Time/CCT Total # of Minutes Spent Total Time Spent with Patient: Total time spent is greater than 50% in coordination of care (as documented) at patient's floor/unit and/or counseling patient: Coding Level of Care Code 28927 IN/OBS CONSULT LVL 3,45M Diagnoses
[2023-05-13] MEDS: SODIUM CHLORIDE 0.9% 1000ML 1,000 ML IV SCH ×2 (09:58→17:36)
[2023-05-13] MEDS: DAPTOmycin 300 MG in SYRINGE 0 ML IV SCH (10:26)
[2023-05-13] MEDS: PIPERACILLIN/TAZOBACTAM 4.5 GM in DEXTROSE 5% 100 ML IV SCH ×2 (14:09→22:09)
[2023-05-13] MEDS: KETOROLAC TROMETHAMINE 15 MG/ML VIAL IV PRN (17:35)
[2023-05-14] MEDS: KETOROLAC TROMETHAMINE 15 MG/ML VIAL IV PRN (00:18)
[2023-05-14] MEDS: SODIUM CHLORIDE 0.9% 1000ML 1,000 ML IV SCH ×2 (01:33→10:06)
[2023-05-14] MEDS: PIPERACILLIN/TAZOBACTAM 4.5 GM in DEXTROSE 5% 100 ML IV SCH ×3 (05:57→21:41)
[2023-05-14 06:28] LABS: Basophils # (auto) 0.04 K/uL (0-0.2); Basophils % (auto) 0.5 %; Eosinophils # (auto) 0.24 K/uL (0-0.50); Eosinophils % (auto) 3.2 %; Hematocrit (blood only) 36.2 % (37.0-47.0); Hemoglobin 12.4 g/dl (12.0-16.0); Immature Granulocytes # (auto) 0.02 K/uL (0.01-0.20); Immature Granulocytes % (auto) 0.3 %; Lymphocytes # (auto) 2.29 K/uL (1.2-3.4); Lymphocytes % (auto) 30.8 %; Mean Corpuscular Hemoglobin 29.7 pg (25.0-34.0); Mean Corpuscular Hgb Conc 34.3 g/dL (32.0-36.0); Mean Corpuscular Volume 86.8 fL (80.0-100.0); Mean Platelet Volume 10.1 fL (9.4-12.4); Monocytes # (auto) 0.68 K/uL (0.11-0.59); Monocytes % (auto) 9.1 %; Neutrophils # (auto) 4.17 K/uL (1.40-6.50); Neutrophils % (auto) 56.1 %; Platelet Count 212 K/uL (130-400); RDW Standard Deviation 38.2 fL (36.4-46.3); Red Blood Count 4.17 M/uL (4.20-5.40); White Blood Count 7.44 K/ul (4.8-10.8)
[2023-05-14 06:32] LABS: BUN Creatinine Ratio 16.4 (10-20); Calcium 8.3 mg/dl (8.6-10.3); Creatinine Clr Calc Pharmacy 118.5 ml/min; Est GFR (African American) 121.1 ml/min; Est GFR (Non-African American) 104.5 ml/min; Potassium 4.3 mmol/L (3.5-5.1)
[2023-05-14] MEDS: DAPTOmycin 300 MG in SYRINGE 0 ML IV SCH (10:06)
[2023-05-14] MEDS ORDERED: FLUCONAZOLE 50 MG TAB PO ONE (14:00)
[2023-05-14] MEDS: ADVANCED PROBIOTIC 1250 MG CAPSULE PO SCH (15:10)
--- NOTE | 2023-05-14 17:48 | Hospitalist Progress Note ---
Date of Service May 14, 2023 Assessment & Plan (1) Bursitis: Plan: 37-year-old female presents with ongoing back pain since last Thursday and MRI scan showsinfectious interspinous bursitis at L2-3 with small abscess adjacent to the L2 and L3 spinous processes, measuring 15.9x 7.3 mm. No evidence of osteomyelitis or epidural abscess. UA was positive. Infectious interspinous bursitis at L2-L3 with small abscess No epidural abscess on MRI Blood culture: Negative neck Afebrile, back pain improving Ambulating better Continue daptomycin plus Zosyn day #2 Awaiting ID recommendations for antibiotic Continue as needed Toradol Heating pad added UTI Urine culture: Mixed aldair, no sensitivities to follow DVT prophylaxis SCDs for now Disposition may need IV abx awaiting ID consult Full code Admission and Anticipated Discharge Date Admission Date: May 13, 2023 Subjective Follow-up for bursitis with abscess, etc. Seen resting in bed, sitting up, not in distress, more comfortable In good spirits States she feels improved today Less back pain, able to move and ambulate better No radiation to the right leg No other neurologic symptoms No fevers or chills Review of Systems Review of Systems: all noted and negative except for above Physical Exam Physical Exam: General- oriented x 3, not in distress, speaks in sentences with no effort or accessory muscle use Eyes- anicteric Neck- no JVD Lungs- clear breath sounds bilaterally, no rales/wheezes Heart- normal rate, regular rhythm; no murmurs Abdomen- normal bowel sounds, nondistended, soft, nontender Extremities- no pretibial edema, no calf tenderness Back-no tenderness Neuro- alert, oriented x 3; no gross focal neurologic deficits Skin- warm & dry Results & Data Results & Data Vital Signs (Past 12 Hours) Vital Signs Temp Pulse Pulse Resp BP Pulse Ox O2 Del Method 05/14/23 16:28 37.5 C 92 H 17 140/92 97 Room Air 05/14/23 15:00 82 05/14/23 11:19 37.0 C 93 H 17 117/72 96 Room Air 05/14/23 09:00 90 all noted and reviewed including below (1) Bursitis Bursitis location: other site Qualified Code(s): M71.9 - Bursopathy, unspecified
[2023-05-14] MEDS ORDERED: IBUPROFEN 800 MG TAB PO STA (22:03)
[2023-05-15] MEDS: SODIUM CHLORIDE 0.9% 1000ML 1,000 ML IV SCH (03:23)
[2023-05-15] MEDS: PIPERACILLIN/TAZOBACTAM 4.5 GM in DEXTROSE 5% 100 ML IV SCH ×2 (05:21→14:58)
[2023-05-15] MEDS: ADVANCED PROBIOTIC 1250 MG CAPSULE PO SCH (09:29)
[2023-05-15] MEDS: DAPTOmycin 300 MG in SYRINGE 0 ML IV SCH (09:29)
[2023-05-15] MEDS ORDERED: IBUPROFEN 800 MG TAB PO STA (16:20)
[2023-05-15] MEDS ORDERED: DAPTOmycin 150 MG in SYRINGE 0 ML IV ONE (16:30)
[2023-05-15] MEDS ORDERED: cefTRIAXone SODIUM 2,000 MG in DEXTROSE 5% 50 ML IV STA (16:36)
--- NOTE | 2023-05-15 17:03 | Hospitalist Progress Note ---
Date of Service May 15, 2023 Assessment & Plan (1) Bursitis: Plan: 37-year-old female presents with ongoing back pain since last Thursday and MRI scan showsinfectious interspinous bursitis at L2-3 with small abscess adjacent to the L2 and L3 spinous processes, measuring 15.9x 7.3 mm. No evidence of osteomyelitis or epidural abscess. UA was positive. Infectious interspinous bursitis at L2-L3 with small abscess No epidural abscess on MRI Blood culture: Negative Continues to improve Afebrile, back pain minimal now Ambulating better ID consulted, recommendation: Daptomycin plus ceftriaxone IV daily x 2 weeks CBC with differentials, CMP, CPK, CRP weekly while on IV antibiotic Repeat MRI in 2 weeks, follow-up with ID clinic after repeat MRI, duration of IV antibiotic depending on results of MRI UTI Urine culture: Mixed aldair, no sensitivities to follow DVT prophylaxis SCDs for now Disposition Discharge to home after home IV antibiotic has been arranged Admission and Anticipated Discharge Date Admission Date: May 13, 2023 Subjective Follow-up for bursitis with abscess, etc. Seen resting in bed, sitting up, in good spirits States her back feels much better Minimal discomfort, ambulating with no problems, no leg radiation No fevers or chills No other new symptom Review of Systems Review of Systems: all noted and negative except for above Physical Exam Physical Exam: General- oriented x 3, not in distress, speaks in sentences with no effort or accessory muscle use Eyes- anicteric Neck- no JVD Lungs- clear breath sounds bilaterally Heart- normal rate, regular rhythm; no murmurs Abdomen- normal bowel sounds, nondistended, soft, nontender Extremities- no pretibial edema, no calf tenderness Neuro- alert, oriented x 3; no gross focal neurologic deficits Skin- warm & dry Results & Data Results & Data Vital Signs (Past 12 Hours) Vital Signs Temp Pulse Pulse Resp BP BP Pulse Ox 05/15/23 16:04 36.9 C 92 H 18 135/80 97 05/15/23 14:00 97 H 05/15/23 07:00 76 05/15/23 14:41 05/15/23 11:51 36.8 C 92 H 19 141/84 H 97 05/15/23 08:28 36.7 C 76 18 151/86 H 97 O2 Del Method 05/15/23 16:04 Room Air 05/15/23 14:00 05/15/23 07:00 05/15/23 14:41 Room Air 05/15/23 11:51 Room Air 05/15/23 08:28 Room Air all noted and reviewed including below (1) Bursitis Bursitis location: other site Qualified Code(s): M71.9 - Bursopathy, unspecified
[2023-05-15] MEDS ORDERED: cefTRIAXone SODIUM 2,000 MG in DEXTROSE 5% 50 ML IV ONE (18:00)
[2023-05-16] MEDS ORDERED: cefTRIAXone SODIUM 2,000 MG in DEXTROSE 5% 50 ML IV SCH ×2 (06:00→09:00)
[2023-05-16] MEDS: ADVANCED PROBIOTIC 1250 MG CAPSULE PO SCH (09:03)
[2023-05-16] MEDS ORDERED: IBUPROFEN 800 MG TAB PO STA (09:15)
[2023-05-16] MEDS ORDERED: DAPTOmycin 450 MG in SYRINGE 0 ML IV SCH (09:30)
--- NOTE | 2023-05-20 01:31 | Discharge Summary ---
Discharge Summary Date of Service May 16, 2023 delayed entry date of service noted above Notes For Next Care Provider Medication Changes From Visit DAPTOMYCIN IV, CEFTRIAXONE IV Admission HPI Per Admitting Provider 37-year-old female no significant past medical history comes here because of severe back pain that started last Thursday. Thursday she could not able to ambulate much because the pain. Went to [facility] CT scan was done which showed some right hydronephrosis but nothing significant. But his pain was not getting better came to the ER here. Had temperature 101.1. Able to ambulate okay but a lot of pain on movement in the back. Pain is shooting into the right leg up to the knee. The pain is radiating to the umbilical region. No headache. No neck pain. No chest pain. No blurred visions earache or runny nose or sore throat. No cough. No shortness of breath. Currently no nausea. Constipated last 2 days. Micturating okay. Currently resting comfortably and hemodynamically stable. Patient states she was having knee pains and some vision issues which resolved now and she was tested for rheumatological disease and ALDO was positive. Patient states it was not determined why her ALDO was positive Past medical history none Past surgical history Family history significant for hypertension, high cholesterol and diabetes Social history denies smoking or alcohol use. Denies drug use Admission Exam Per Admitting Provider General- Not in distress Head- atraumatic Eyes- PERRL, ENT- oropharynx clear Neck- supple, no JVD, Lungs- clear to auscultation bilaterally, no wheezing or crackles. Heart- regular rate and rhythm; no murmur, no gallop. Abdomen- normal bowel sounds, soft, nontender, no distension. Extremities- no pretibial edema, no erythema seen. Neuro- alert, oriented x 3; PERRL, EOMI; no facial palsy; no dysarthria; moves extremities Musculoskeletal Right leg straight leg test positive. Skin- warm & dry Principal Dx & Hospital Course #1 = Principal Diagnosis (1) Bursitis: 37-year-old female presents with ongoing back pain since last Thursday and MRI scan showsinfectious interspinous bursitis at L2-3 with small abscess adjacent to the L2 and L3 spinous processes, measuring 15.9x 7.3 mm. No evidence of osteomyelitis or epidural abscess. UA was positive. Infectious interspinous bursitis at L2-L3 with small abscess No epidural abscess on MRI Blood culture: Negative significantly improved Afebrile, back pain mostly resolved Ambulating better ID consulted- Dr Roberts, recommendation: Daptomycin plus ceftriaxone IV daily x 2 weeks CBC with differentials, CMP, CPK, CRP weekly while on IV antibiotic Repeat MRI in 2 weeks, follow-up with ID clinic after repeat MRI, duration of IV antibiotic depending on results of MRI UTI Urine culture: Mixed aldair, no sensitivities to follow DVT prophylaxis SCDs for now Disposition Discharge to home after home IV antibiotic has been arranged Discharge Exam General- oriented x 3, not in distress, speaks in sentences with no effort or accessory muscle use Eyes- anicteric Neck- no JVD Lungs- clear breath sounds bilaterally Heart- normal rate, regular rhythm; no murmurs Abdomen- normal bowel sounds, nondistended, soft, nontender Extremities- no pretibial edema, no calf tenderness Neuro- alert, oriented x 3; no gross focal neurologic deficits Skin- warm & dry Updated Medication List Medication Instructions Recorded Confirmed Type ceftriaxone 2 gram solution for 2 g IV DAILY 14 days #14 ea 05/16/23 05/19/23 Rx injection daptomycin 500 mg intravenous 450 mg IV DAILY 14 days #14 ea 05/16/23 05/19/23 Rx solution Hospital Stay Data Consultations 05/13/23 09:00 Consult Orthopedic Surgery Routine 05/14/23 08:31 Consult Infectious Diseases Routine Diagnostic Imagining Performed Laboratory Results WBC 7.44 K/ul (4.8-10.8) 05/14/23 05:41 RBC 4.17 M/uL (4.20-5.40) L 05/14/23 05:41 Hgb 12.4 g/dl (12.0-16.0) 05/14/23 05:41 Hct 36.2 % (37.0-47.0) L 05/14/23 05:41 MCV 86.8 fL (80.0-100.0) 05/14/23 05:41 MCH 29.7 pg (25.0-34.0) 05/14/23 05:41 MCHC 34.3 g/dL (32.0-36.0) 05/14/23 05:41 RDW Std Deviation 38.2 fL (36.4-46.3) 05/14/23 05:41 RDW Coeff of Nelson 12.0 % (11.5-14.5) 05/14/23 05:41 Plt Count 212 K/uL (130-400) 05/14/23 05:41 MPV 10.1 fL (9.4-12.4) 05/14/23 05:41 Immature Gran % (Auto) 0.3 % 05/14/23 05:41 Neut % (Auto) 56.1 % 05/14/23 05:41 Lymph % (Auto) 30.8 % 05/14/23 05:41 Ponce % (Auto) 9.1 % 05/14/23 05:41 Eos % (Auto) 3.2 % 05/14/23 05:41 Baso % (Auto) 0.5 % 05/14/23 05:41 Neut # (Auto) 4.17 K/uL (1.40-6.50) 05/14/23 05:41 Lymph # (Auto) 2.29 K/uL (1.2-3.4) 05/14/23 05:41 Ponce # (Auto) 0.68 K/uL (0.11-0.59) H 05/14/23 05:41 Eos # (Auto) 0.24 K/uL (0-0.50) 05/14/23 05:41 Baso # (Auto) 0.04 K/uL (0-0.2) 05/14/23 05:41 Immature Gran # (Auto) 0.02 K/uL (0.01-0.20) 05/14/23 05:41 Sodium 138 mmol/L (136-145) 05/14/23 05:41 Potassium 4.3 mmol/L (3.5-5.1) 05/14/23 05:41 Chloride 111 mmol/L (98-107) H 05/14/23 05:41 Carbon Dioxide 23 mmol/L (21-32) 05/14/23 05:41 Anion Gap 4 (3-11) 05/14/23 05:41 BUN 12 mg/dl (6-23) 05/14/23 05:41 Creatinine 0.73 mg/dl (0.6-1.2) 05/14/23 05:41 Est Cr Clr Drug Dosing 118.5 ml/min 05/14/23 05:41 Est GFR ( Amer) 121.1 ml/min 05/14/23 05:41 Est GFR (Non-Af Amer) 104.5 ml/min 05/14/23 05:41 BUN/Creatinine Ratio 16.4 (10-20) 05/14/23 05:41 Glucose 99 mg/dl (70-99(Fasting)) 05/14/23 05:41 Lactate 0.6 mmol/L (0.4-2.0) 05/13/23 00:54 Calcium 8.3 mg/dl (8.6-10.3) L 05/14/23 05:41 Magnesium 2.0 mg/dl (1.7-2.4) 05/14/23 05:41 Total Bilirubin 0.7 mg/dl (0.2-1.0) 05/13/23 00:01 AST 10 U/L (13-39) L 05/13/23 00:01 ALT 11 U/L (7-52) 05/13/23 00:01 Alkaline Phosphatase 36 U/L (34-104) 05/13/23 00:01 Total Protein 7.0 gm/dl (6.0-8.3) 05/13/23 00:01 Albumin 4.3 gm/dl (3.4-5.0) 05/13/23 00:01 Globulin 2.7 gm/dl (2.5-4.0) 05/13/23 00:01 Albumin/Globulin Ratio 1.6 (0.9-2) 05/13/23 00:01 Lipase 20 U/L (11-82) 05/13/23 00:01 Urine Color Yellow 05/13/23 00:01 Urine Appearance Cloudy (Clear) A 05/13/23 00:01 Urine pH 6.5 (4.5-7.5) 05/13/23 00:01 Ur Specific Gibbon 1.007 (1.000-1.030) 05/13/23 00:01 Urine Protein Negative (Negative) 05/13/23 00:01 Urine Glucose (UA) Negative (Negative) 05/13/23 00:01 Urine Ketones Trace (Negative) H 05/13/23 00:01 Urine Blood Negative (Negative) 05/13/23 00:01 Urine Nitrite Negative (Negative) 05/13/23 00:01 Urine Bilirubin Negative (Negative) 05/13/23 00:01 Urine Urobilinogen Negative (Negative) 05/13/23 00:01 Ur Leukocyte Esterase 1+ (Negative) H 05/13/23 00:01 Urine WBC (Auto) >30 /hpf (0-5) H 05/13/23 00:01 Urine RBC (Auto) 0-4 /hpf (0-4) 05/13/23 00:01 U Hyaline Cast (Auto) 1-5 /lpf (0-5) 05/13/23 00:01 U Epithel Cells (Auto) >30 /lpf (0-5) H 05/13/23 00:01 Urine Bacteria (Auto) 1+ (Negative) H 05/13/23 00:01 Urine Test Negative (Negative) 05/13/23 00:01 Impressions Abdomen/Pelvis CT 05/13/23 00:26 Exam(s): CT ABDOMEN + PELVIS Without Contrast EXAM: CT Abdomen and Pelvis Without Intravenous Contrast CLINICAL HISTORY: Reason for exam: right flank pain. TECHNIQUE: Axial computed tomography images of the abdomen and pelvis without intravenous contrast. CTDI is 28.08 mGy and DLP is 1426.95 mGy-cm. Automated exposure control was utilized for the study. A dose lowering technique was utilized adhering to the principles of ALARA. COMPARISON: No relevant prior studies available. FINDINGS: Lung bases: Unremarkable. No mass. No consolidation. ABDOMEN: Liver: The liver is borderline enlarged is 18 cm. No focal liver lesion is seen. Gallbladder and bile ducts: Unremarkable. No calcified stones. No ductal dilation. Pancreas: Unremarkable. No ductal dilation. Spleen: Unremarkable. No splenomegaly. Adrenals: Unremarkable. No mass. Kidneys and ureters: The kidneys are unremarkable. No hydronephrosis or ureterolithiasis is seen. Stomach and bowel: Unremarkable. No obstruction. No mucosal thickening. PELVIS: Appendix: The appendix is normal. Bowel loops are nondilated. No acute inflammatory changes are seen involving the bowel. Bladder: Unremarkable. No stones. Reproductive: Unremarkable as visualized. ABDOMEN and PELVIS: Intraperitoneal space: Unremarkable. No free air. No significant fluid collection. Bones/joints: No acute fracture. No dislocation. Soft tissues: Unremarkable. Vasculature: Unremarkable. No abdominal aortic aneurysm. Lymph nodes: Unremarkable. No enlarged lymph nodes. IMPRESSION: 1. The kidneys are unremarkable. No hydronephrosis or ureterolithiasis is seen. 2. The appendix is normal. Bowel loops are nondilated. No acute inflammatory changes are seen involving the bowel. Electronically signed by: Alex Thakkar MD 05/13/23 01:20 AM Lumbar Spine MRI 05/13/23 01:28 CR Exam(s): MRI L SPINE W/WO Contrast IV Amt: 9.5cc gadavist EXAM: MR Lumbar Spine Without and With Intravenous Contrast CLINICAL HISTORY: Reason for exam: back pain, fever, elevated wbc, eval for infection. TECHNIQUE: Magnetic resonance images of the lumbar spine without and with intravenous contrast in multiple planes. CONTRAST: Patient received 9.5cc gadavist of IV contrast COMPARISON: CT Abd/Pel 05-13-2023 FINDINGS: Vertebrae: There are 5 lumbar type vertebral bodies with shallow lumbar lordosis. There is normal vertebral body height and alignment. The bone marrow signal is normal. No acute fracture. There is mild wedging of the T12 vertebral body, which is likely physiologic. Spinal cord: The conus is normal size, shape and signal characteristics, terminating at T11-12. No abnormal enhancement. Soft tissues: Increased fluid signal in the L2-3, L3-4 and L4-5 interspinous bursa with increased enhancement in the L2-3 interspinous bursa with small rim-enhancing fluid collection adjacent to the right spinous process concerning for abscess, measuring 15.9 x 7.3 mm. DISCS/SPINAL CANAL/NEURAL FORAMINA: L1-L2: Unremarkable. No significant disc disease. No stenosis. L2-L3: Unremarkable. No significant disc disease. No stenosis. L3-L4: Unremarkable. No significant disc disease. No stenosis. L4-L5: Unremarkable. No significant disc disease. No stenosis. L5-S1: Unremarkable. No significant disc disease. No stenosis. IMPRESSION: Findings concerning for infectious interspinous bursitis at L2-3 with small abscess adjacent to the L2 and L3 spinous processes, measuring 15.9 x 7.3 mm. No evidence of osteomyelitis or epidural abscess. Communications: Verify Receipt Electronically signed by: Cheryl Lujan MD 05/13/23 04:57 AM Pending Results Patient Have Any Pending Studies at Discharge: Yes Discharge Instructions Given to Patient (Per Discharging Provider) PLEASE REFER TO YOUR NEW MEDICATION LIST AND FOLLOW INSTRUCTIONS CAREFULLY. YOUR NEW MEDICATIONS INCLUDE: DAPTOMYCIN IV, CEFTRIAXONE IV -DAILY FOR AT LEAST 2 WEEKS PLEASE TAKE A PROBIOTIC DAILY WHILE ON ANTIBIOTICS AND AT LEAST 2 WEEKS AFTER TO PREVENT C. DIFFICILE DIARRHEA. DRINK PLENTY OF WATER. YOU WILL NEED TO HAVE WEEKLY BLOOD WORK INCLUDING COMPLETE BLOOD COUNT, COMPLETE METABOLIC PROFILE, CPK, AND CRP WHILE ON IV ANTIBIOTICS. REPEAT MRI OF THE LUMBAR SPINE IN 2 WEEKS. FOLLOW-UP WITH [facility] DR. SOTO IN 2 WEEKS. HE WILL REVIEW YOUR MRI RESULTS AND DETERMINE NEED FOR EXTENSION OF ANTIBIOTIC COURSE. PLEASE CALL YOUR PRIMARY CARE PHYSICIAN OR RETURN TO THE ER IF WITH WORSENING OF SYMPTOMS, INCLUDING WORSENING OF BACK PAIN, LEG PAIN, LEG WEAKNESS OR NUMBNESS, FEVERS OR CHILLS, DIARRHEA, ETC. FOLLOW UP WITH PRIMARY CARE PHYSICIAN IN 1 WEEK. FOLLOW-UP WITH [facility] DR. SOTO IN 2 WEEKS. Total Time Total Time Spent Total Time Spent (In Minutes): >30 minutes
== END 2023-05-16 11:58 | disposition home or self-care (01) | DRG 558 ==
LOC: ED 23:19 → 2W 05-13 05:57